=== PATIENT | female | born 1955 | race Caucasian/White ===

== ENCOUNTER 2024-12-17 12:41 | Inpatient (IN) | payer OTHER ==
[~2024-12-17] VITALS: Ht 167.6 cm; Wt 64.0 kg
[2024-12-17 13:00] LABS: PLATELET COUNT (AUTO) 257 K/uL (150-450); RED BLOOD CELL COUNT(AUTO) 4.32 MIL/uL (4.00-5.20); RED CELL DISTRIBUTION WIDTH 15.5 % (11.5-14.5); WHITE BLOOD COUNT (AUTO) 7.7 K/uL (4.5-11.0)
[2024-12-17] MEDS ORDERED: IOHEXOL 350 MG/ML 100 ML VIAL ONE (13:01)
[2024-12-17] MEDS ORDERED: SODIUM CHLORIDE 0.9% 100 ML ONE (13:01)
[2024-12-17 13:18] LABS: CALCIUM, TOTAL 8.6 mg/dL (8.8-10.5); CREATININE 0.84 mg/dL (0.60-1.30); GLOMERULAR FILTR. RATE CALC > 60 mL/min (>60); GLUCOSE,RANDOM 101 mg/dL (70-110); SODIUM SERUM 135 mmol/L (136-145); UREA NITROGEN, BLOOD 17 mg/dL (7-18)
[2024-12-17 13:25] LABS: ASPARTATE AMINOTRANSFERASE 17 U/L (15-37); TOTAL PROTEIN, SERUM 6.5 g/dL (6.4-8.2)
[2024-12-17 13:26] LABS: ALCOHOL, BLOOD (SERUM) < 3 mg/dL (0-10)
[2024-12-17 13:37] LABS: APPEARANCE,URINE CLEAR (CLEAR); GLUCOSE, URINE (UA) NEGATIVE (NEGATIVE); LEUKOCYTE ESTERASE ,URINE MODERATE (NEGATIVE); NITRATE,URINE POSITIVE (NEGATIVE); OCCULT BLOOD,URINE TRACE (NEGATIVE); PH,URINE DRUG SCREEN 6.0 (5.0-8.0); SPECIFIC GRAVITIY, URINE 1.028 (1.003-1.030)
[2024-12-17 13:46] LABS: TROPONIN I-HIGH SENSITIVITY 8 ng/L (<51)
[2024-12-17 13:51] LABS: LACTIC ACID 0.5 mmol/L (0.4-2.0)
[2024-12-17 14:00] LABS: CHOL/HDL RATIO 3.6 (3.9-5.7); LDL CHOL (CALC.) 93.0 mg/dL (0-130)
[2024-12-17 14:05] LABS: ABG BASE EXCESS -1.5 mmol/L (-2.0-3.0); ABG CARBOXYHEMOGLOBIN 3.4 % (0.5-1.5); ABG HCO3 23.0 mmol/L (21.0-28.0); ABG METHEMOGLOBIN 0.4 % (0.0-1.5); ABG OXYGEN CONTENT 16.4 mL/dL (15.0-23.0); ABG OXYGEN SATURATION 96.9 % (94.0-98.0); ABG OXYHEMOGLOBIN 93.2 % (94.0-98.0); ABG PCO2 46 mmHg (32.0-45.0); ABG PH 7.343 (7.350-7.450); ABG TOTAL HEMOGLOBIN 12.4 G/dL (12.0-16.0); FRACTIONATED INSPIRED OXYGEN 36.0 % (21-100.0); PO2, ARTERIAL BG 88.4 mmHg (83.0-108.0); SOURCE, BLOOD GAS ARTERIAL; TEMPERATURE, FAHRENHEIT, BG 97.0 FAHREN (96.0-98.6)
[2024-12-17 14:06] LABS: ALLEN TEST, BLOOD GAS Positive; FLOW, BLOOD GAS 4.00 L/min (0.00-15.00); O2 DEVICE,BLOOD GAS CANNULA (ROOM AIR); PATIENT RATE, BG 19.0 min.; SITE, BLOOD GAS LFT RADIAL
[2024-12-17 14:29] LABS: HYALINE CASTS, URINE 0-2 /LPF (None Seen); SQUAMOUS EPITHELIAL CELL,UR Few /LPF (None Seen)
[2024-12-17 14:57] LABS: AMPHET/METH SCREEN,URINE POSITIVE (NEGATIVE); BARBITURATE SCREEN, URINE NEGATIVE (NEGATIVE); CANNABINOID SCREEN,URINE POSITIVE (NEGATIVE); COCAINE SCREEN,URINE NEGATIVE (NEGATIVE); METHADONE SCREEN, URINE NEGATIVE (NEGATIVE)
[2024-12-17] MEDS ORDERED: LISI10TA24 PO (15:04)
[2024-12-17] MEDS ORDERED: DULO20CA23 PO (15:04)
[2024-12-17] MEDS ORDERED: QUET100T34 PO (15:04)
[2024-12-17] MEDS ORDERED: DIVA-153 PO (15:04)
[2024-12-17 15:27] LABS: ALCOHOL, URINE DRUG SCREEN NEGATIVE (NEGATIVE)
[2024-12-17] MEDS ORDERED: ZOLPIDEM TARTRATE 5 MG TABLET PO PRN (15:30)
[2024-12-17] MEDS ORDERED: MAGNESIUM HYDROXIDE SUSPENSION 30 ML UDCUP PO PRN (15:30)
[2024-12-17] MEDS ORDERED: ALBUTEROL SULFATE 2.5 MG/0.5 ML NEB SOLUTION NEB PRN (15:30)
[2024-12-17] MEDS ORDERED: BISACODYL 10 MG RECTAL RECTAL SUPPOSITORY PR PRN (15:30)
[2024-12-17] MEDS ORDERED: IPRATROPIUM BROMIDE 0.5 MG/2.5 ML NEB SOLUTION NEB PRN (15:30)
[2024-12-17] MEDS ORDERED: ONDANSETRON HCL 4 MG/2 ML VIAL IVP PRN (15:30)
[2024-12-17] MEDS: DEXTROSE 5%-0.45% SODIUM CHL 1,000 ML IV SCH (15:46)
[2024-12-17] MEDS: CefTRIAXone 1 GM/DEXTROSE 50 ML IV SCH (15:46)
[2024-12-17] MEDS: HEPARIN SODIUM,PORCINE 5,000 UNITS/ML VIAL SQ SCH (15:46)
[2024-12-17 15:50] LABS: CREATINE KINASE, TOTAL ONLY 123 U/L (26-192)
[2024-12-17 18:15] VITALS: BP 141/80; PULSE 73; RESP 16; TEMP 98.5; O2SAT 96
[2024-12-17 19:47] LABS: TROPONIN I-HIGH SENSITIVITY 8 ng/L (<51)
[2024-12-17 20:22] VITALS: BP 136/76; PULSE 64; RESP 18; TEMP 97.3; O2SAT 97
[2024-12-18 00:04] VITALS: BP 137/75; PULSE 69; RESP 16; TEMP 97.3; O2SAT 94
[2024-12-18 01:16] LABS: TROPONIN I-HIGH SENSITIVITY 9 ng/L (<51)
[2024-12-18] MEDS: ACETAMINOPHEN 325 MG TABLET PO PRN (02:50)
[2024-12-18 04:19] VITALS: BP 148/70; PULSE 64; RESP 16; TEMP 98.1; O2SAT 95
[2024-12-18 06:25] LABS: PLATELET COUNT (AUTO) 261 K/uL (150-450); RED BLOOD CELL COUNT(AUTO) 4.34 MIL/uL (4.00-5.20); RED CELL DISTRIBUTION WIDTH 15.2 % (11.5-14.5); WHITE BLOOD COUNT (AUTO) 7.7 K/uL (4.5-11.0)
[2024-12-18 06:47] LABS: ASPARTATE AMINOTRANSFERASE 15 U/L (15-37); CALCIUM, TOTAL 7.9 mg/dL (8.8-10.5); CREATININE 0.59 mg/dL (0.60-1.30); GLOMERULAR FILTR. RATE CALC > 60 mL/min (>60); GLUCOSE,RANDOM 84 mg/dL (70-110); SODIUM SERUM 139 mmol/L (136-145); TOTAL PROTEIN, SERUM 5.9 g/dL (6.4-8.2); UREA NITROGEN, BLOOD 11 mg/dL (7-18)
[2024-12-18 08:11] VITALS: BP 158/80; PULSE 70; RESP 17; TEMP 97.9; O2SAT 100
[2024-12-18] MEDS ORDERED: DIVA-112 PO (08:11)
[2024-12-18] MEDS ORDERED: LISI-894 PO (08:11)
[2024-12-18] MEDS: PANTOPRAZOLE SODIUM 40 MG DR TABLET PO SCH (08:13)
[2024-12-18 12:28] VITALS: BP 152/68; PULSE 59; RESP 18; TEMP 97.3; O2SAT 95
[2024-12-18] MEDS ORDERED: CEPH-558 PO (13:50)
[2024-12-18] MEDS ORDERED: DIVALPROEX SODIUM 500 MG ER TABLET PO SCH (21:00)
[2024-12-19] MEDS ORDERED: DULoxetine HCL 20 MG CAPSULE PO SCH (09:00)
== END 2024-12-18 16:00 | disposition home or self-care (01) | DRG 92 ==
LOC: EMS 12:41 → EDH 14:30 → 5S 17:45
PROVIDERS: ADMIT Hospitalist; ATTEND Hospitalist
DX: G92.8 Other toxic encephalopathy (principal); N39.0 Urinary tract infection, site not specified; R55 Syncope and collapse; I10 Essential (primary) hypertension; F15.10 Other stimulant abuse, uncomplicated; Z88.6 Allergy status to analgesic agent; Z88.8 Allergy status to other drugs, medicaments and biological substances
CPT/HCPCS: 36600; 70496; 70498; 71045; 80053; 80061; 80307; 81001; 82550; 82805; 82948; 83036; 83605; 83735; 84484; 85025; 85610; 85730; 86850; 86900; 86901; 87040; 87077; 87086; 87185; 87186; 92610; 93005; 93306; 93880; 96365; 96366; 96368; 97162; 97166; 99291; G0480; G0481; J0696; J1644; J7050; 36415-L1; 36415-TC; 70450; 70450-TC

== ENCOUNTER → 2025-02-20 | Emergency (ER) | payer OTHER ==
[~2025-02-20] VITALS: Ht 167.6 cm; Wt 61.4 kg
[~2025-02-20] MED LIST: ACETAMINOPHEN 500 MG TABLET ONE; CEPH-558 PO; DIVA-153 PO; DULO20CA23 PO; DULO20CA30 PO; LISI-893 PO; LISI10TA24 PO; MELA5TAB40 PO; QUET100T34 PO
[2025-02-20 18:41] VITALS: TEMP 98.2
[2025-02-20 19:15] LABS: PLATELET COUNT (AUTO) 319 K/uL (150-450); RED BLOOD CELL COUNT(AUTO) 4.57 MIL/uL (4.00-5.20); RED CELL DISTRIBUTION WIDTH 15.0 % (11.5-14.5); WHITE BLOOD COUNT (AUTO) 7.4 K/uL (4.5-11.0)
[2025-02-20 19:47] LABS: COVID AG,FIA SOURCE NASAL SWAB
[2025-02-20 19:56] LABS: CALCIUM, TOTAL 8.2 mg/dL (8.8-10.5); CREATININE 1.3 mg/dL (0.60-1.30); GLOMERULAR FILTR. RATE CALC 41.0 mL/min (>60); GLUCOSE,RANDOM 77.0 mg/dL (70-110); SODIUM SERUM 137.0 mmol/L (136-145); UREA NITROGEN, BLOOD 15.0 mg/dL (7-18)
[2025-02-20 20:05] LABS: SARS-COV2 (COVID) ANTIGEN,FIA Negative (Negative)
[2025-02-20 22:36] VITALS: BP 137/83; PULSE 70; RESP 17; O2SAT 96
[2025-02-20] MEDS: ACETAMINOPHEN 500 MG TABLET PO ONE (23:05)
[2025-02-20 23:54] LABS: APPEARANCE,URINE CLEAR (CLEAR); GLUCOSE, URINE (UA) NEGATIVE (NEGATIVE); LEUKOCYTE ESTERASE ,URINE NEGATIVE (NEGATIVE); NITRATE,URINE NEGATIVE (NEGATIVE); OCCULT BLOOD,URINE NEGATIVE (NEGATIVE); PH,URINE DRUG SCREEN 7.5 (5.0-8.0); SPECIFIC GRAVITIY, URINE 1.012 (1.003-1.030)
[2025-02-21] LABS: AMPHET/METH SCREEN,URINE NEGATIVE (NEGATIVE); BARBITURATE SCREEN, URINE NEGATIVE (NEGATIVE); CANNABINOID SCREEN,URINE POSITIVE (NEGATIVE); COCAINE SCREEN,URINE NEGATIVE (NEGATIVE); METHADONE SCREEN, URINE NEGATIVE (NEGATIVE)
[2025-02-21 00:01] LABS: ALCOHOL, URINE DRUG SCREEN NEGATIVE (NEGATIVE)
== END | disposition still patient (30) ==
LOC: EMS 18:36
DX: R45.851 Suicidal ideations (principal); F31.30 Bipolar disorder, current episode depressed, mild or moderate severity, unspecified; F12.90 Cannabis use, unspecified, uncomplicated; F15.90 Other stimulant use, unspecified, uncomplicated; Z90.5 Acquired absence of kidney; Z88.6 Allergy status to analgesic agent; Z79.899 Other long term (current) drug therapy; Z88.8 Allergy status to other drugs, medicaments and biological substances; Z20.822 Contact with and (suspected) exposure to COVID-19
CPT/HCPCS: 99285; 87426; 80048; 81003; 85025; 36415; 80307; G0480